=== PATIENT | female | born 1990 | race Caucasian/White ===

== ENCOUNTER 2016-04-04 05:40 | Inpatient (IN) | payer OTHER ==
[~2016-04-04] VITALS: Ht 165.1 cm; Wt 72.1 kg
[~2016-04-04 05:40] MED LIST: Lactated Ringer's 1,000 ML IV ONE
[2016-04-04] MEDS ORDERED: Methylergonovine 0.2 mg/mL Inj IM PRN ×2 (06:00→11:25)
[2016-04-04] MEDS ORDERED: CeFAZolin Inj 2 GM in IV Premix 1 EACH IV ONE (06:00)
[2016-04-04] MEDS ORDERED: Lactated Ringer's 1,000 ML IV SCH (06:00)
[2016-04-04] MEDS ORDERED: Oxytocin 10 Unit/mL Inj IM PRN ×2 (06:00→11:25)
[2016-04-04] MEDS ORDERED: Carboprost 250 mCg/mL Inj IM PRN ×2 (06:00→11:25)
[2016-04-04] MEDS ORDERED: Hemorrhage Kit, Post Partum XX ONE ×2 (06:00→11:25)
--- NOTE | 2016-04-04 07:08 | PCM.HPOB ---
Subjective Date of Service: Apr 04, 2016 Referring Provider: Admitting Physician: Elena Jarvis MD Primary Care Physician: Nopcp Attending Physician: Elena Jarvis MD Chief Complaint c section History of Present History of Present Illness Isabela is a 25yo who presented to the center as instructed at 39weeks gestation for a planned repeat . She has not had contractions, denies loss of fluid or vaginal bleeding. She continues to feel her baby move often. She has smoked 1 pack per day during her until the the 3rd trimester when she has started using nicotine patches. She reports that she is feeling well. OB History: (4), Term (1), (2), Living (1) Past Medical History Obstetrical History: delivery for cephalopelvic disproportion of her now 14month old son SGA at 37weeks Medical History: Depression, not taking any medication for this PTSD, not taking any medication for this Social History: Family lives in [place] Isabela lives locally with the FOB, per patient he is not very supportive Hx Tobacco Use: Yes (using nicotine patches, was 1ppd smoker until 3rd trimester) Hx Substance Use: Yes (methamphetamine, last use 12/2013) Past Family History Family History No major pediatric illness or congenital problems in the family Genetic Screening/Counseling Genetic Screening/Counseling: Negative Review of Systems Constitutional: Y: Chills, Fever Cardiovascular: Denies: Chest Pain, Edema Respiratory: Denies: Cough, Wheezing Gastrointestinal: Denies: Abdominal Pain, Nausea, Vomiting Genitourinary: Denies: Dysuria Skin: Denies: Rash Psychologic: Denies: Depression, Insomnia Medications Home medications Once daily vitamin Once daily nicotine patch Allergy Coded Allergies: No Known Allergies (Verified Allergy, Unknown, 05/08/15) Exam Vital Signs BP 107/67mmHg HR 87 Temp 36.4 Constitutional: Well-developed, Well-nourished, Normal habitus HEENT: Atraumatic, Scleral Anicteric, Mucous Membr Moist/Corder Lungs: Clear to Auscultation, Normal Air Movement Heart: Regular Rate/Rhythm, No Murmurs/Rubs/Gallops Abdomen: Gravid, Normal bowel sounds, Soft, No tenderness Extremities: Pulses Palpable x4, Warm, No Edema Neurological/Psychiatric: Alert, Oriented X3, Cooperative, No Acute Distress Neuro: Grossly Neurologically Intact, Normal DTRs Labs/Diagnostics Maternal Blood Type: O (RH positive) Hx Rho(D) Immune Globulin: No Group B Strep Results: Negative Previous Infant with GBS: No Rubella: Equivocal Lab History: Negative for: Hx Gonorrhea, Hx HIV, Hx Herpes, Hx Syphilis OB Intrapartum Assessment/Plan Problems: (1) Term Plan: Anticipate this morning Nicotine patch daily Status: Acute ICD Code: Z34.80 Attending Statement The patient was seen and examined together with Dr. Larson on 04/04/2016 and I agree with the history, exam and plan as outlined in the note above. Given her poor social situation plan will be for social work . Manjula Larson DO Apr 04, 2016 07:08 Elena Jarvis MD Apr 04, 2016 09:11
[2016-04-04] MEDS ORDERED: Sodium Citrate-Citric Acid 15 mL Solution PO ONE (07:20)
[2016-04-04 07:40] LABS: Mean Corpuscular Hemoglobin 31.3 pg (27.0-35.0)
[2016-04-04] MEDS ORDERED: NICO1PAT16 TRANSDERM (09:11)
--- NOTE | 2016-04-04 09:20 | NUR ---
received SW referral. advised LOAD TESTER
--- NOTE | 2016-04-04 09:53 | NUR ---
Social Work Note: Referral D/A: CIRCULAR KNITTER spoke with [facility] embossing calender operator Heidi and was informed that Pt would need to be seen and an initial assessment completed. P: embossing calender operator Heidi indicated that Pt would be undergoing a repeat today and requested that Pt be seen and assessed on 04/05/2015. CIRCULAR KNITTER to meet with Pt on 04/05/2015. RANDELL Bangura, AAC
[2016-04-04] MEDS ORDERED: Morphine PF 1 mg/mL 10 mL Inj INTRATHEC ONE (10:30)
[2016-04-04] MEDS ORDERED: Morphine PF 1 mg/mL 10 mL Inj ONE (11:05)
[2016-04-04] MEDS: Lactated Ringer's 1,000 ML IV SCH ×2 (11:23→18:48)
[2016-04-04] MEDS ORDERED: Measles-Mumps-Rubella Vaccine 0.5 mL Inj SUBQ ONE ×2 (11:25→14:30)
[2016-04-04] MEDS ORDERED: diphenhydrAMINE 50 mg Capsule PO PRN (11:25)
[2016-04-04] MEDS ORDERED: LANOlin HPA 7 Gm Ointment TOPICAL PRN (11:25)
[2016-04-04] MEDS ORDERED: Oxytocin 30 Units/500 mL LR 30 UNITS in IV Premix 1 EACH IV PRN (11:25)
[2016-04-04] MEDS ORDERED: Sodium Chloride LOK Flush 10 mL Syringe IVFLUSH PRN (11:25)
[2016-04-04] MEDS ORDERED: hydrOXYzine Pamoate 25 mg Capsule PO PRN (11:25)
[2016-04-04] MEDS ORDERED: Lactated Ringer's 1,000 ML IV PRN (11:29)
[2016-04-04] MEDS ORDERED: HYDROmorphone 1 mg/mL Inj IVPUSH PRN (11:30)
[2016-04-04] MEDS ORDERED: EPHEDrine Sulfate 50 mg/mL Inj IVPUSH PRN (11:30)
[2016-04-04] MEDS ORDERED: fentaNYL-PF 50 mCg/mL 2 mL Inj IVPUSH PRN (11:30)
[2016-04-04] MEDS ORDERED: Dexamethasone 4 mg/mL Inj IVPUSH PRN (11:30)
[2016-04-04] MEDS ORDERED: Ondansetron 2 mg/mL 2 mL Inj IVPUSH PRN (11:30)
[2016-04-04] MEDS ORDERED: Atropine 0.4 mg/mL Inj IV PRN (11:30)
--- NOTE | 2016-04-04 11:32 | PCM.ANEP2 ---
Post Anesthesia Evaluation ASA/CMS Post Anesthesia VS in Patient's Normal Range?: Yes Resp Stable; Airway Patent?: Yes CV Function & Hydration Stable: Yes Mental Status Recovered?: Yes Pain control Satisfactory?: Yes N/V Control Satisfactory?: Yes Sav Hill MD Apr 04, 2016 11:32
--- NOTE | 2016-04-04 11:32 | PCM.ANEP1 ---
Post Anesthesia Phase 1 PACU Phase 1 Assessment Date of Service: Apr 04, 2016 Anesthetic Administered: SAB Level of Alertness: Awake, talking TORREZ's with Equal Strength: No (SAB still on board) Pain: No Nausea or Vomiting: No Oxygen Delivery: Room Air Lungs: Normal Air Movement Dermatome Level: T10 (Umbilicus) Sav Hill MD Apr 04, 2016 11:32
--- NOTE | 2016-04-04 11:32 | PCM.HPANE ---
Patient Data Surgeon Admitting Provider:Elena Jarvis MD Attending Provider:Elena Jarvis MD Primary Care Physician:Asa Other Provider:Anderson Zarate Anesthesia Reason for Visit repeat section repeat section Ht/WT & BMI Body Mass Index Allergies Coded Allergies: No Known Allergies (Verified Allergy, Unknown, 05/08/15) Medications Reported Medications Nicotine 21 mg/24 hr Patch 1 Each Patch.dysq1 Patch TRANSDERM DAILY Ref 0 04/04/16 History Hx Substance Use: Yes (methamphetamine, last use 12/2013) Smoking Status: Current Every Day Smoker Stop/Bang Risk Assessment Category Category 1A: Patient has history of documented sleep apnea, and HAS NOT received any narcotic, sedative or anesthesia administration during this stay. Category 1B: Patient has history of documented sleep apnea, and HAS received any narcotic , sedative or anesthesia administration during this stay Category 2: Patient has SUSPECTED Obstructive Sleep Apnea, and HAS received any narcotic , sedative or anesthesia administration during this stay. Category 3: Patient has SUSPECTED Obstructive Sleep Apnea and HAS NOT received narcotic, sedative or anesthesia administration during this stay. Category 4: Outpatient in Procedural Areas with known sleep apnea or who screen positive for High Risk via the STOP/BANG questionnaire. Exam Exam General Appearance: Alert, Oriented X3, Cooperative, No Acute Distress HEENT/AIRWAY: MP 2, Neck Movement (FROM), Mouth Opening (3 FBMO) Lungs: Normal Air Movement Heart: Regular Rate/Rhythm Meds/Labs/Diagnostics Admission Meds Current Medications Lactated Ringer's (Lr) 1,000 ml @ 120 mls/hr Q8H20M ONCE IV Last administered on 04/04/16t 07:34; Start 04/04/16 at 05:00; Stop 04/04/16 at 13:19 Labs Test 04/04/16 07:30 04/04/16 09:27 White Blood Count 9.2th/mm3 (3.8-10.1) Red Blood Count 3.83mil/mm3 (3.90-5.20) Hemoglobin 12.0g/dL (12.0-15.6) Hematocrit 35.6% (35.0-46.0) Mean Corpuscular Volume 93.0fL (81-100) Mean Corpuscular Hemoglobin 31.3pg (27.0-35.0) Mean Corpuscular Hemoglobin Concent 33.7% (32.0-37.0) Red Cell Distribution Width 12.8% (12.3-15.4) Platelet Count 200bil/L (150-400) Plan Impression Patient chart reviewed, patient interviewed and anesthestic plan with risks, benefits, and alternatives discussed, and informed consent obtained. NPO Status: > 8 hrs ASA Physical Status: ASA2 Mod Systemic Disease Anesthetic Plan: SAB Bene/Risks/Altern/Consents: Yes HP Complete Prior to Induction: Yes Other Risks of SAB including bleeding, infection, back pain, permanent nerve damage, PDPH, decreased BP, GETA discussed. AQA. Consent signed. Sav Hill MD Apr 04, 2016 09:32
[2016-04-04] MEDS ORDERED: Phenylephrine/NS 100 mCg/mL 10 mL Syringe IVPUSH ONE (12:48)
[2016-04-04] MEDS ORDERED: EPHEDrine/NS 5 mg/mL 5 mL Syringe ONE (12:48)
[2016-04-04] MEDS ORDERED: Ondansetron 2 mg/mL 2 mL Inj ONE (12:48)
[2016-04-04] MEDS ORDERED: Bupiv-Spinal 0.75%/Dex 8.25% 2 mL Inj ONE (12:48)
[2016-04-04] MEDS ORDERED: Oxytocin 10 Unit/mL Inj ONE (12:48)
--- NOTE | 2016-04-04 14:50 | OP ---
[address] [address] OPERATIVE REPORT PATIENT: BULMARO BRAGG : 1990 MR#: [id number] ADMIT: 04/04/2016 JOB ID: [id number] DATE OF SURGERY: 04/04/2016 PREOPERATIVE DIAGNOSIS(ES): 1. A 39-week intrauterine with history of section, desiring an elective repeat. 2. Short interval . 3. Rubella nonimmune. 4. Remote history of methamphetamine use and tobacco use. POSTOPERATIVE DIAGNOSIS(ES): 1. A 39-week intrauterine with history of section, desiring an elective repeat. 2. Short interval . 3. Rubella nonimmune. 4. Remote history of methamphetamine use and tobacco use. PROCEDURE PERFORMED: Repeat low transverse section. SURGEON: Elena Jarvis MD. BUCKRAM SEWER: Jeffrey Mayorga MD, was necessary for retraction and completion of the case. ANESTHESIA: Spinal. ESTIMATED BLOOD LOSS: 600 cc. FLUID REPLACEMENT: 2 L of crystalloid. URINE OUTPUT: 200 cc of clear yellow urine. FINDINGS: Liveborn female infant, born on April 04, 2018, at 1027 hours, weighing 3531 g or 7 pounds 12.5 ounces with Apgars of 9 at one minute, 9 at five minutes. COMPLICATIONS: None apparent. INDICATIONS: This is a 25-year-old, G4, P 1-0-2-1 female who is presenting at 39 plus 0 weeks gestation with an EDC of April 11, 2016, here for a repeat low transverse section. She declined a trial of labor after . was complicated by history of x1, short interval , rubella nonimmune status, remote history of methamphetamine use and current tobacco use. LABORATORY DATA: Shows a blood type of O positive, antibody screen negative, rubella nonimmune. Varicella immune. Hep B surface antigen negative, RPR nonreactive, HIV negative, GBS negative. Preoperative CBC shows a hemoglobin of 12.0, white count of 9.2, platelets of 200. Her urine drug screen at the time of admission was negative. Risks, benefits and alternatives were discussed. She elected to proceed. DESCRIPTION OF PROCEDURE: The patient was taken to the operating room. She was placed in dorsal supine position with a leftward tilt. She was prepped and draped in usual sterile fashion for a section. Under excellent spinal anesthesia, the abdomen was entered sharply through previous scar. This was brought down to the level of the rectus fascia sharply. The fascia was then incised in the midline. Combination of blunt and sharp dissection was used to separate the fascia from the underlying rectus muscle. Cautery was also used to aid in this process. The peritoneum was entered bluntly and this entrance was then extended with cautery to allow visualization of the gravid uterus. The bladder blade was then placed. A bladder flap was created using Metzenbaum scissors, and she was noted to have a very thin lower uterine segment. Entrance into the uterine cavity was completed bluntly after the bladder flap was made given the thinness of the lower uterine segment. The rupture of membranes was completed using an Allis clamp. The bladder blade was then removed. The infant's vertex was brought to the uterine incision and the head delivered easily. The anterior shoulder followed by the posterior shoulder and remainder of the infant was then easily delivered. After a 60 second delay, the cord was then clamped and cut and passed to the nursing personnel who were in attendance. Cord blood was then obtained. The placenta delivered intact spontaneously and was passed off the table. Thirty units of Pitocin was placed in the IV bag to firm the uterus. The uterus was cleaned with a moist lap sponge. The bladder blade was then replaced and the uterus was closed in a single locking layer of 0 Vicryl. Electrocautery was used to achieve hemostasis along the peritoneum. The posterior cul-de-sac was irrigated and again, the uterine incision was noted to be hemostatic. The uterus was then placed back into the abdominal cavity, where again hemostasis was ensured. The rectus muscles were reapproximated with a single [id number] stitch of 0 Vicryl. The rectus fascia was closed with two running nonlocking stitches of 0 Vicryl starting in each corner and meeting in the middle. The subcutaneous tissues were made hemostatic with electrocautery and was closed with 4-0 Vicryl in a running subcuticular fashion. The patient tolerated the procedure well. Recovered in her room with her . All sponge, needle and instrument counts were correct at the completion of the procedure.
[2016-04-04] MEDS: oxyCODONE-Acetamin 5-325 mg Tablet PO PRN (19:43)
[2016-04-05] MEDS: Lactated Ringer's 1,000 ML IV SCH ×3 (03:23→19:23)
[2016-04-05] MEDS: oxyCODONE-Acetamin 5-325 mg Tablet PO PRN ×5 (03:59→23:49)
--- NOTE | 2016-04-05 06:59 | PCM.PNOBPP ---
Subjective Date of Service Apr 05, 2016 Post : Repeat Ceserean Delivery Visit History Isabela is a 25yo G4 now P2022 with a history of methamphetamine use, last use in 2013, who presented to the center at 39weeks gestation for a planned repeat which was done on 04/04/16 without complication. She has smoked 1 pack per day during her until the the 3rd trimester when she started using nicotine patches. She had been living with the FOB who is no longer involved. Subjective Isabela has been ambulating in the julia and out in the edgar and is eating well without nausea. She has been breast feeding and reports that she is finding breast feeding to be much easier now than with her first baby. She reports having light bleeding. Lochia: Normal Pain Management: PO pain meds Gastrointestinal: Good Appetite, No N/V, Passing Flatus Postop Activity: Ambulating Independently, Ambulating in Edgar Group B Strep Results: Negative Rubella: Equivocal Blood Type: O RH Type: Positive Labs Laboratory Tests 04/04/16 07:30: White Blood Count 9.2, Red Blood Count 3.83, Hemoglobin 12.0, Hematocrit 35.6, Mean Corpuscular Volume 93.0, Mean Corpuscular Hemoglobin 31.3, Mean Corpuscular Hemoglobin Concent 33.7, Red Cell Distribution Width 12.8, Platelet Count 200 Exam Vital Signs Vital Signs BP 105/68mmHg HR 82 Temp 36.7 RR 18 Oxygen saturation 100 Vital Signs: VS reviewed, stable Exam Abdomen: Fundus firm (1 fingerbreadth inferior to the umbilicus), Abdomen appropriately tender : Voiding without difficulty Extremities: No tenderness/swelling, No edema Lungs: Clear to Auscultation, Normal Air Movement Heart: Regular Rate/Rhythm, No Murmurs/Rubs/Gallops General: Alert, Oriented X3, Cooperative, No Acute Distress Surgical Wound : Incision General Appearence: Steri Strips, Sutures, Intact, Well Approximated, No Erythemia, No Discharge Dressing & Drainage Status: Dry & Intact, Dressing Removed (briefly removed for examination of the wound) OB Post Assessment/Plan Assessment Isabela is doing well medically Problems: (1) Term Status: Acute ICD Code: Z34.80 (2) Delivery by elective caesarean section Status: Acute ICD Code: O82 Post plan: Continue routine post care Plan: Social work consultation as the patient reports that she does not have a place to live as she is not going back to live with the FOB Attending Statement The patient was seen and examined together with Dr. Larson on 04/05/2015 and I agree with the history, exam and plan as outlined in the note above. / MD Neo Muñiz Rachel M DO Apr 05, 2016 06:59 Lucho Mcneill MD Apr 05, 2016 16:57
[2016-04-05 07:18] LABS: Mean Corpuscular Hemoglobin 31.1 pg (27.0-35.0); Mean Corpuscular Volume 95.5 fL (81-100)
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
--- NOTE | 2016-04-06 07:17 | PCM.PNOBPP ---
Subjective Date of Service Apr 06, 2016 Post : Repeat Ceserean Delivery Visit History Isabela is a 25yo G4 now P2022 with a history of methamphetamine use, last use in 2013, who presented to the center at 39weeks gestation for a planned repeat which was done on 04/04/16 without complication. She has smoked 1 pack per day during her until the the 3rd trimester when she started using nicotine patches. She had been living with the FOB who is no longer involved and has not been to the hospital to see her. Subjective Isabela reports feeling stressed about where she will be going after discharge as she is homeless. She has met with social work here at [facility] who provided her with [facility] contact information to see what resources might be available to her. She reports that her pain is well controlled. She has been passing flatus, but has not yet had a bowel movement yet, she is a bit worried about the potential pain that she might have with a bowel movement Lochia: Normal Pain Management: PO pain meds Gastrointestinal: Good Appetite, No N/V, Passing Flatus Postop Activity: Ambulating Independently, Ambulating in Edgar Group B Strep Results: Negative Rubella: Equivocal Blood Type: O RH Type: Positive Labs Laboratory Tests 04/05/16 06:47: White Blood Count 11.2, Red Blood Count 3.34, Hemoglobin 10.4, Hematocrit 31.9, Mean Corpuscular Volume 95.5, Mean Corpuscular Hemoglobin 31.1, Mean Corpuscular Hemoglobin Concent 32.6, Red Cell Distribution Width 12.8, Platelet Count 161 Exam Vital Signs Vital Signs BP 103/64 HR 72 RR 16 Temp 36.5 Vital Signs: VS reviewed, stable Exam Abdomen: Fundus firm (2 fingerbreadths inferior to the umbilicus) : Voiding without difficulty Extremities: No tenderness/swelling Lungs: Clear to Auscultation, Normal Air Movement Heart: Regular Rate/Rhythm, No Murmurs/Rubs/Gallops General: Alert, Oriented X3, Cooperative, No Acute Distress, Other (Nicotine patch in place on the left shoulder) Surgical Wound : Wound Location/Description Pfannenstiel incision Incision General Appearence: Steri Strips, Sutures, Well Approximated, Incision Healing, No Erythemia, No Discharge, No Inflammatory Changes Additional Information Test 04/05/16 06:47 White Blood Count 11.2th/mm3 (3.8-10.1) Red Blood Count 3.34mil/mm3 (3.90-5.20) Hemoglobin 10.4g/dL (12.0-15.6) Hematocrit 31.9% (35.0-46.0) Mean Corpuscular Volume 95.5fL (81-100) Mean Corpuscular Hemoglobin 31.1pg (27.0-35.0) Mean Corpuscular Hemoglobin Concent 32.6% (32.0-37.0) Red Cell Distribution Width 12.8% (12.3-15.4) Platelet Count 161bil/L (150-400) her upon my entering the room. OB Post Assessment/Plan Assessment Isabela is doing well medically Problems: (1) Term Status: Acute ICD Code: Z34.80 (2) Delivery by elective caesarean section Permanent Comment: Repeat Last Edited By: Manjula Larson DO on Apr 15:56 Status: Acute ICD Code: O82 Post plan: Continue routine post care, Anticipate discharge home today Plan: She will need to follow up with [facility] for her depression ( she is already established with them) after discharge. Attending Statement Agree with evaluation and plan Manjula Larson DO Apr 06, 2016 07:06 Roberta Romero MD Apr 08, 2016 15:44
[2016-04-06] MEDS: oxyCODONE-Acetamin 5-325 mg Tablet PO PRN ×3 (08:02→19:02)
[2016-04-06] MEDS ORDERED: ASCO-294 PO (15:53)
[2016-04-06] MEDS ORDERED: OXYC1TAB24 PO (15:53)
[2016-04-06] MEDS ORDERED: FERR-83 PO (15:53)
[2016-04-06] MEDS ORDERED: IBUP800T28 PO (15:53)
[2016-04-06] MEDS ORDERED: DOCU-41 PO (15:53)
--- NOTE | 2016-04-06 15:59 | PCM.DIOB ---
Manjula Larson DO 04/06/16 1559: Obstetrical Disch Instruction Date of Service: Apr 06, 2016 Dates of Hospitalization Date of Hospital Admission Apr 04, 2016 at 05:40 Providers Admitting Physician: Elena Jarvis MD Primary Care Physician: Asa Attending Physician: Elena Jarvis MD Discharge Diagnosis Problems: (1) Term Status: Acute ICD Code: Z34.80 (2) Delivery by elective caesarean section Status: Acute ICD Code: O82 Diet Discharge Diet: No restrictions Activity Discharge Activity-General: Pelvic Rest for 6 weeks, Be up and about, Balance rest and activity, No lifting >15 pounds for 2 weeks Dressing and Incisional Care Dressing Care: Allow Steri Stripes to fall off Hygiene: May shower, DO NOT soak incision under water, NO bathtub, hot tub or whirlpool Additional Instructions Discharge Instructions Please take the iron (ferrous sulfate) and vitamin c together for your anemia. Do not take more pain medication (oxycodone-acetaminophen) than is necessary -- less is better. Percocet pills have Tylenol (acetaminophen) in them at 325mg per pill. Do not take Tylenol in addition to your pain medication, you should take one or the other Both iron and Percocet can give you constipation so you have also been given a prescription for docusate to keep you regular. Take Docusate by mouth twice daily. Be sure to follow up in 2 weeks and then again in 6 weeks at [facility]. Pelvic rest for 6 weeks (nothing per vagina including intercourse, tampons) If you have a fever greater than 100.4, please call [facility]. There is always someone parole or probation officer to talk to. If you have an increase in bleeding, call [facility]. If you have a lot of bleeding suddenly, especially if you have symptoms of dizziness & weakness with it, get emergency help. When you see [facility] in two weeks, you will be informed of the results of all the labs. If you start experiencing extreme depression, especially if you feel that you are a danger to yourself or your family, seek emergency help. You have been through a lot -- BE SURE TO TAKE CARE OF YOURSELF. Follow Up Plan Follow-up Provider (F9): Elena Jarvis MD Follow-up appointment: Weeks (2 and 6) Call your provider for: Fever or Chills, Shortness of breath, Heavy vaginal bleeding, Heavy bleeding, Epigastric pain, Excessive constipation, Vaginal discomfort, Red painful breasts Roberta Romero MD 04/08/16 1554: Obstetrical Disch Instruction Additional Information I saw patient and agree with above evaluation and plan Manjula Larson DO Apr 06, 2016 15:59 Roberta Romero MD Apr 08, 2016 15:54
--- NOTE | 2016-04-06 16:20 | PCM.DC.OB ---
Obstetrical Discharge Summary Date of Service Apr 06, 2016 Date of hospital admission Apr 04, 2016 at 05:40 Date of Discharge: Apr 06, 2016 Providers Admitting Physician: Elena Jarvis MD Primary Care Physician: Nopcp Attending Physician: Elena Jarvis MD Problems: (1) Term Status: Acute ICD Code: Z34.80 (2) Delivery by elective caesarean section Comment: Repeat Last Edited By: Manjula aLrson DO on Apr 06, 2016 15: 56 Status: Acute ICD Code: O82 Invasive procedures Low transverse , planned Date of Procedure: Apr 04, 2016 Brief History and Physical: Isabela is a 25yo G4 now P2022 with a history of methamphetamine use, last use in 2013, and depression followed by [facility] who presented to the center at 39weeks gestation for a planned repeat which was done on 04/04/16 without complication. She has smoked 1 pack per day during her until the the 3rd trimester when she started using nicotine patches. All urine drug screens throughout her have been negative. She had been living with the FOB who is no longer involved and has not been to the hospital to see her or the baby. She has done well post , ambulating in the halls independently, eating a normal diet without nausea, and urinating with ease. She has been breast feeding. Lochia has been normal and her surgical wound is well appearing with steri strips in place over the sutured wound. No erythema or drainage from the wound. Vital signs have remained normal. Social work has consulted and provided information regarding resources for the patient who will discharge to board status. Ascorbate Calcium (Vitamin C) 500 Mg Tablet 500 MG PO DAILY Take 1 tablet by mouth daily at the same time that you take the Ferrous sulfate. Prescribed by: MANJULA LARSON DO Docusate Sodium (Colace) 100 Mg Capsule 100 MG PO BID Prescribed by: MNAJULA LARSON DO Ferrous Sulfate (Ferrous Sulfate) 325 Mg Tablet 325 MG PO DAILY Prescribed by: MANJULA LARSON DO Ibuprofen (Ibuprofen) 800 Mg Tablet 800 MG PO Q6H PRN PRN For Pain Prescribed by: MANJULA LARSON DO Nicotine 21 mg/24 hr Patch (Nicotine 21 mg/24 hr Patch) 1 Each Patch.dysq 1 PATCH TRANSDERM DAILY (Reported) oxyCODONE-Acetaminophen 5-325 mg (oxyCODONE-Acetaminophen 5-325 mg) 1 Each Tablet 1-2 TAB PO Q6H PRN PRN For Moderate Pain Prescribed by: MANJULA LARSON DO Disposition Discharging to boarder status as her is staying for weight loss Follow-up plan 2week and 6 week appointments with [facility] Discharge Diet: No restrictions Discharge Activity-General: Pelvic Rest for 6 weeks, Try not to overdue, Be up and about, Balance rest and activity, No lifting >15 pounds for 2 weeks Patient instructions Please take the iron (ferrous sulfate) and vitamin c together for your anemia. Do not take more pain medication (oxycodone-acetaminophen) than is necessary -- less is better. Percocet pills have Tylenol (acetaminophen) in them at 325mg per pill. Do not take Tylenol in addition to your pain medication, you should take one or the other Both iron and Percocet can give you constipation so you have also been given a prescription for docusate to keep you regular. Take Docusate by mouth twice daily. Be sure to follow up in 2 weeks and then again in 6 weeks at [facility]. Pelvic rest for 6 weeks (nothing per vagina including intercourse, tampons) If you have a fever greater than 100.4, please call [facility]. There is always someone net application support specialist to talk to. If you have an increase in bleeding, call [facility]. If you have a lot of bleeding suddenly, especially if you have symptoms of dizziness & weakness with it, get emergency help. When you see [facility] in two weeks, you will be informed of the results of all the labs. If you start experiencing extreme depression, especially if you feel that you are a danger to yourself or your family, seek emergency help. You have been through a lot -- BE SURE TO TAKE CARE OF YOURSELF. Attending Statement: I saw patient and agree with above evaluation and plan Manjula Larson DO Apr 06, 2016 16:20 Roberta Romero MD Apr 08, 2016 15:55
== END 2016-04-06 19:49 | disposition home or self-care (01) | DRG 540 ==
LOC: FBC 05:40 → EDSTATUS 09:15
PROVIDERS: ADMIT Obstetrics & Gynecology; ATTEND Obstetrics & Gynecology
PROC: 10D00Z1 Extraction of Products of Conception, Low, Open Approach (ICD-10-PCS; principal; 2016-04-04 09:15)
DX: O34.211 Maternal care for low transverse scar from previous cesarean delivery (principal); F17.290 Nicotine dependence, other tobacco product, uncomplicated; Z3A.39 39 weeks gestation of pregnancy; Z37.0 Single live birth; O99.334 Smoking (tobacco) complicating childbirth